=== PATIENT | male | born 1955 | race Caucasian/White ===

== ENCOUNTER → 2021-07-17 11:37 | Outpatient (BNVA) | payer MEDICARE, OTHER, SELFPAY | PROVIDERS: Family Provider Family Medicine; PCP Family Medicine; Visit Provider Family Medicine | DX: L08.9 Local infection of the skin and subcutaneous tissue, unspecified (principal) | CPT/HCPCS: 73120; 87070; 87075; 87077; 87184; 87205 ==

== ENCOUNTER 2021-07-31 13:08 | Outpatient (CLI) | payer MEDICARE, OTHER, SELFPAY | END 2021-07-31 13:09 | disposition home or self-care (01) | PROVIDERS: Family Provider Family Medicine; PCP Family Medicine; Visit Provider Nurse Practitioner Family | DX: A49.02 Methicillin resistant Staphylococcus aureus infection, unspecified site (principal); L98.492 Non-pressure chronic ulcer of skin of other sites with fat layer exposed | CPT/HCPCS: 11042; A6446 ==

== ENCOUNTER → 2021-08-01 11:46 | Outpatient (BNVA) | payer MEDICARE, OTHER, SELFPAY | PROVIDERS: Family Provider Family Medicine; PCP Nurse Practitioner Family; Visit Provider Nurse Practitioner Family | DX: L02.511 Cutaneous abscess of right hand (principal) | CPT/HCPCS: 80053; 83036; 84550; 85025; 86038; 86140 ==

== ENCOUNTER 2021-08-07 13:38 | Outpatient (CLI) | payer MEDICARE, OTHER, SELFPAY | END 2021-08-07 13:39 | disposition home or self-care (01) | LOC: WOUND 13:39 | PROVIDERS: Family Provider Family Medicine; PCP Nurse Practitioner Family; Visit Provider Emergency Medicine | DX: L98.492 Non-pressure chronic ulcer of skin of other sites with fat layer exposed (principal) | CPT/HCPCS: 11042; A6446 ==

== ENCOUNTER 2021-08-14 13:04 | Outpatient (CLI) | payer MEDICARE, OTHER, SELFPAY | END 2021-08-14 13:05 | disposition home or self-care (01) | LOC: WOUND 13:05 | PROVIDERS: Family Provider Family Medicine; PCP Nurse Practitioner Family; Visit Provider Thoracic Surgery (Cardiothoracic Vascular Surgery) | DX: R60.9 Edema, unspecified (principal); I10 Essential (primary) hypertension | CPT/HCPCS: 99212 ==

== ENCOUNTER → 2022-11-12 13:25 | Outpatient (BNVA) | payer MEDICARE, OTHER, SELFPAY | PROVIDERS: Family Provider Family Medicine; PCP Nurse Practitioner Family; Referring Provider Nurse Practitioner Family; Visit Provider Podiatrist Foot & Ankle Surgery | DX: L60.0 Ingrowing nail (principal) | CPT/HCPCS: 11750; 99203 ==

== ENCOUNTER → 2022-12-28 08:39 | Outpatient (BNVA) | payer MEDICARE, OTHER, SELFPAY | PROVIDERS: Family Provider Family Medicine; PCP Nurse Practitioner Family; Visit Provider Podiatrist Foot & Ankle Surgery | DX: L03.032 Cellulitis of left toe (principal) | CPT/HCPCS: 99213 ==

== ENCOUNTER 2023-07-01 13:30 | Outpatient (CLI) | payer MEDICARE, OTHER, SELFPAY | END 2023-07-01 13:31 | disposition home or self-care (01) | LOC: SLEEP 07-05 17:03 | PROVIDERS: Family Provider Family Medicine; PCP Nurse Practitioner Family; Visit Provider Nurse Practitioner Family | DX: G47.33 Obstructive sleep apnea (adult) (pediatric) (principal); G47.36 Sleep related hypoventilation in conditions classified elsewhere | CPT/HCPCS: G0399 ==

== ENCOUNTER → 2024-12-21 10:36 | Outpatient (BNVA) | payer MEDICARE, OTHER, SELFPAY | PROVIDERS: Family Provider Family Medicine; PCP Nurse Practitioner Family; Visit Provider Podiatrist Foot & Ankle Surgery | DX: L60.3 Nail dystrophy (principal) | CPT/HCPCS: 11750 ==

== ENCOUNTER 2025-02-15 05:00 | Outpatient (RCR) | payer MEDICARE, OTHER, SELFPAY | END 2025-03-17 23:55 | disposition home or self-care (01) | LOC: WPT 05:00 | PROVIDERS: PCP Family Medicine; Visit Provider Neurological Surgery | DX: M51.16 Intervertebral disc disorders with radiculopathy, lumbar region (principal) | CPT/HCPCS: 97110; 97112; 97140; 97161; 97530 ==

== ENCOUNTER → 2025-02-19 10:44 | Outpatient (BNVA) | payer MEDICARE, OTHER, SELFPAY | PROVIDERS: Family Provider Family Medicine; PCP Nurse Practitioner Family; Referring Provider Neurological Surgery; Visit Provider Anesthesiology Pain Medicine | DX: M54.9 Dorsalgia, unspecified (principal); M51.16 Intervertebral disc disorders with radiculopathy, lumbar region | CPT/HCPCS: 99204 ==

== ENCOUNTER → 2025-03-07 12:59 | Outpatient (BNVA) | payer MEDICARE, OTHER, SELFPAY | PROVIDERS: PCP Family Medicine; Visit Provider Anesthesiology Pain Medicine | DX: M54.16 Radiculopathy, lumbar region (principal); M54.9 Dorsalgia, unspecified | CPT/HCPCS: 64483; 64484; J1100; J3490; J9999 ==

== ENCOUNTER 2025-03-18 05:00 | Outpatient (RCR) | payer MEDICARE, OTHER, SELFPAY | END 2025-04-10 07:45 | disposition home or self-care (01) | LOC: WPT 05:00 | PROVIDERS: PCP Family Medicine; Visit Provider Neurological Surgery | DX: M51.16 Intervertebral disc disorders with radiculopathy, lumbar region (principal) | CPT/HCPCS: 97110; 97112; 97530 ==

== ENCOUNTER → 2025-03-20 10:01 | Outpatient (BNVA) | payer MEDICARE, OTHER, SELFPAY | PROVIDERS: PCP Family Medicine; Visit Provider Anesthesiology Pain Medicine | DX: M54.9 Dorsalgia, unspecified (principal); M51.16 Intervertebral disc disorders with radiculopathy, lumbar region | CPT/HCPCS: 99214 ==